=== PATIENT | male | born 1955 | race Caucasian/White ===

== ENCOUNTER 2020-10-22 03:41 | Outpatient (CLI) | payer MEDICARE, OTHER, SELFPAY | END 2020-10-22 03:42 | disposition home or self-care (01) | LOC: PUVA 03:41 | PROVIDERS: PCP Family Medicine; Visit Provider Dermatology | DX: L40.9 Psoriasis, unspecified (principal) | CPT/HCPCS: 96900 ==

== ENCOUNTER 2020-10-26 04:54 | Outpatient (CLI) | payer MEDICARE, OTHER, SELFPAY | END 2020-10-26 04:55 | disposition home or self-care (01) | LOC: PUVA 04:54 | PROVIDERS: PCP Family Medicine; Visit Provider Dermatology | DX: L40.9 Psoriasis, unspecified (principal) | CPT/HCPCS: 96900 ==

== ENCOUNTER 2020-10-29 14:07 | Outpatient (CLI) | payer MEDICARE, OTHER, SELFPAY | END 2020-10-29 14:08 | disposition home or self-care (01) | LOC: PUVA 10-30 14:07 | PROVIDERS: PCP Family Medicine; Visit Provider Dermatology | DX: L40.9 Psoriasis, unspecified (principal) | CPT/HCPCS: 96900 ==

== ENCOUNTER 2020-11-02 10:41 | Outpatient (CLI) | payer MEDICARE, OTHER, SELFPAY | END 2020-11-02 10:42 | disposition home or self-care (01) | LOC: PUVA 11-06 10:42 | PROVIDERS: PCP Family Medicine; Visit Provider Dermatology | DX: L40.9 Psoriasis, unspecified (principal) | CPT/HCPCS: 96900 ==

== ENCOUNTER 2020-11-05 10:42 | Outpatient (CLI) | payer MEDICARE, OTHER, SELFPAY | END 2020-11-05 10:43 | disposition home or self-care (01) | LOC: PUVA 11-06 10:43 | PROVIDERS: PCP Family Medicine; Visit Provider Dermatology | DX: L40.9 Psoriasis, unspecified (principal) | CPT/HCPCS: 96900 ==

== ENCOUNTER 2020-11-09 14:51 | Outpatient (CLI) | payer MEDICARE, OTHER, SELFPAY | END 2020-11-09 14:52 | disposition home or self-care (01) | LOC: PUVA 14:51 | PROVIDERS: PCP Family Medicine; Visit Provider Dermatology | DX: L40.9 Psoriasis, unspecified (principal) | CPT/HCPCS: 96900 ==

== ENCOUNTER 2020-11-12 11:30 | Outpatient (CLI) | payer MEDICARE, OTHER, SELFPAY | END 2020-11-12 11:31 | disposition home or self-care (01) | LOC: PUVA 11:31 | PROVIDERS: PCP Family Medicine; Visit Provider Dermatology | DX: L40.9 Psoriasis, unspecified (principal) | CPT/HCPCS: 96900 ==

== ENCOUNTER 2020-11-16 07:26 | Outpatient (CLI) | payer MEDICARE, OTHER, SELFPAY | END 2020-11-16 07:27 | disposition home or self-care (01) | LOC: PUVA 07:27 | PROVIDERS: PCP Family Medicine; Visit Provider Dermatology | DX: L40.9 Psoriasis, unspecified (principal) | CPT/HCPCS: 96900 ==